=== PATIENT | male | born 1975 | race Two or more races ===

== ENCOUNTER 2019-02-02 20:09 | Emergency (ER) | payer SELFPAY ==
[2019-02-02] MEDS ORDERED: ACETAMINOPHEN 325 MG TABLET PO ONE (21:53)
--- NOTE | 2019-02-02 23:20 | RADIOLOGY REPORT (SQ) ---
EXAM DESCRIPTION: XR HAND 3 OR MORE VIEWS COMPLETED DATE/TME: 02/02/2019 00:00 CLINICAL HISTORY: 43 years, Male, LACERATION COMPARISON: None. NUMBER OF VIEWS: 4 TECHNIQUE: 4 view left hand LIMITATIONS: None. FINDINGS: Overlying bandaging material is present causing significant artifact of the thumb. As visualized no acute fracture. No definitive dislocation. Assessment for foreign body is nondiagnostic due to artifact IMPRESSION: Limited due to overlying artifact/bandaging material. No convincing evidence for acute osseous abnormality. copyright 2010 [employer]- All Rights Reserved
[2019-02-03] MEDS ORDERED: PROMETHAZINE HCL 25 MG TABLET PO ONE (01:08)
[2019-02-03] MEDS ORDERED: MORPHINE SULFATE 10 MG/ML INJ IM ONE (01:08)
[2019-02-03] MEDS ORDERED: CEPHALEXIN 500 MG CAPSULE PO ONE (01:08)
[2019-02-03] MEDS ORDERED: LIDOCAINE 1%/EPINEPHRINE INJ 20 ML VIAL INJ ONE (01:09)
[2019-02-03] MEDS ORDERED: HYDROCODONE/ACETAMINOPHEN 5-325 MG (6 TAB/ER DISP) PO PRN (01:22)
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
[2019-02-03 02:55] VITALS: BP 136/77
== END 2019-02-03 02:53 | disposition home or self-care (01) ==
LOC: ER 20:09
DX: S66.822A Laceration of other specified muscles, fascia and tendons at wrist and hand level, left hand, initial encounter (principal); S61.412A Laceration without foreign body of left hand, initial encounter; Y00.XXXA Assault by blunt object, initial encounter
CPT/HCPCS: 99283; 96372; 73130; 13132; J3490; J2270